=== PATIENT | male | born 1995 | race American Indian/Alaskan Native ===

== ENCOUNTER 2019-03-21 15:11 | Emergency (ER) | payer SELFPAY ==
[2019-03-21 16:02] VITALS: BP 137/78
== END 2019-03-21 18:30 | disposition left against medical advice (07) ==
LOC: ED 15:11
DX: M54.9 Dorsalgia, unspecified (principal); Z53.21 Procedure and treatment not carried out due to patient leaving prior to being seen by health care provider

== ENCOUNTER 2020-08-03 16:11 | Emergency (ER) | payer SELFPAY ==
[2020-08-03 16:46] VITALS: BP 122/71
--- NOTE | 2020-08-03 18:39 | XRay Report ---
Left hand 3 views INDICATION: Left hand pain following injury IMPRESSION: There is an obliquely oriented moderately displaced fracture involving the distal metaphy sis of the fifth metacarpal. No additional fracture is identified. Signer Name: Himanshu Lea MD Signed: 08/03/2020 6:35 PM Workstation Name: [id number]
--- NOTE | 2020-08-03 18:50 | Emergency Department Report ---
ED Upper Extremity Inj HPI - General Chief Complaint: Extremity Injury, Upper Stated Complaint: PINKY INJURY Time Seen by Provider: 08/03/20 18:09 Source: patient Mode of arrival: Ambulatory Limitations: No Limitations - History of Present Illness Initial Comments: Patient is a 25-year-old male presents emergency room complaints of a left hand injury that occurred 5 days ago. He states that he was moving a 80 pound speaker. He states that it started to drop to the ground and his hand got smashed in between the speaker and the ground. He states since then he has had left hand pain and left pinky pain. He states he has worsening pain with moving his pinky. He denies ever injuring the past. He is right-hand dominant. He denies any numbness. No past medical history. No allergies medications. - Related Data Previous Rx's Medication Instructions Recorded Last Taken Type Naproxen [EC-Naproxen] 500 mg PO BID PRN #14 tablet. 08/03/20 Unknown Rx traMADoL [Ultram 50 MG tab] 50 mg PO Q6HR PRN #10 tablet 08/03/20 Unknown Rx Allergies Allergy/AdvReac Type Severity Reaction Status Date / Time No Known Allergies Allergy Unverified 03/21/19 16:03 ED Review of Systems ROS: Stated complaint: PINKY INJURY Other details as noted in HPI Comment: All other systems reviewed and negative ED Past Medical Hx - Past Medical History Previous Medical History?: No - Surgical History Past Surgical History?: No - Social History Smoking Status: Never Smoker Substance Use Type: None - Medications Home Medications: Home Medications Medication Instructions Recorded Confirmed Last Taken Type Naproxen [EC-Naproxen] 500 mg PO BID PRN #14 tablet. 08/03/20 Unknown Rx traMADoL [Ultram 50 MG tab] 50 mg PO Q6HR PRN #10 tablet 08/03/20 Unknown Rx ED Physical Exam - General Limitations: No Limitations General appearance: alert, in no apparent distress - Head Head exam: Present: atraumatic, normocephalic - Eye Eye exam: Present: normal appearance - ENT ENT exam: Present: mucous membranes moist - Respiratory Respiratory exam: Absent: respiratory distress, accessory muscle use - Extremities Exam Extremities exam: Present: other (ttp, edema, and ecchymosis present to the left dorsal medial hand overlying the 5th metacarpal and appears to have deformity, decreased ROM Of the left pinky, no wrist ttp, no snuffbox ttp, neurovascularly intact) - Neurological Exam Neurological exam: Present: alert, oriented X3 - Psychiatric Psychiatric exam: Present: normal affect, normal mood - Skin Skin exam: Present: warm, dry, intact ED Course Vital Signs 08/03/20 16:45 Temperature 98.2 F Pulse Rate 73 Respiratory 18 Rate Blood Pressure 122/71 [Right] O2 Sat by Pulse 98 Oximetry ED Medical Decision Making - Radiology Data Radiology results: report reviewed Ordering Physician: ANIKA AZEVEDO Date of Service: 08/03/20 Procedure(s): XR hand 3+V LT Accession Number(s): [id number] cc: ANIKA AZEVEDO Fluoro Time In Minutes: Left hand 3 views INDICATION: Left hand pain following injury IMPRESSION: There is an obliquely oriented moderately displaced fracture involving the distal metaphysis of the fifth metacarpal. No additional fracture is identified. Signer Name: Himanshu Lea MD Signed: 08/03/2020 6:35 PM Workstation Name: [email or web address] Transcribed By: PHILIP Dictated By: Himanshu Lea MD Electronically Authenticated By: Himanshu Lea MD Signed Date/Time: 08/03/201834 DD/ 34 TD/TT: Print - Medical Decision Making Patient is a 25-year-old male presents emergency room complaints of a left hand injury that occurred 5 days ago. He states that he was moving a 80 pound speaker. He states that it started to drop to the ground and his hand got smashed in between the speaker and the ground. He states since then he has had left hand pain and left pinky pain. He states he has worsening pain with moving his pinky. He denies ever injuring the past. He is right-hand dominant. He denies any numbness. No past medical history. No allergies medications. vss. on exam: ttp, edema, and ecchymosis present to the left dorsal medial hand overlying the 5th metacarpal and appears to have deformity, decreased ROM Of the left pinky, no wrist ttp, no snuffbox ttp, neurovascularly intact. XR left hand: IMPRESSION: There is an obliquely oriented moderately displaced fracture involving the distal metaphysis of the fifth metacarpal. No additional fracture is identified. Discussed case with Dr. Owens, ER attending who advised to pull slightly proximally and then have nurse splint. I pulled left pinky proximally to align left fifth metacarpal, ulnar gutter splint was placed by level vial inspector, patient remained neurovascularly intact after splint. I discussed results with patient and the importance of orthopedic follow-up. Patient given prescription for naproxen and tramadol. Advised patient Please take medication as prescribed. Do not drive or operate machinery while taking severe pain medication. Please follow-up with orthopedic doctor. It is very important that you follow-up. Return to emergency room immediately for any new or worsening symptoms. Critical care attestation.: If time is entered above; I have spent that time in minutes in the direct care of this critically ill patient, excluding procedure time. ED Disposition Clinical Impression: Closed fracture of 5th metacarpal Qualifiers: Encounter type: initial encounter Metacarpal location: shaft Fracture alignment: displaced Laterality: left Qualified Code(s): S62.327A - Displaced fracture of shaft of fifth metacarpal bone, left hand, initial encounter for closed fracture Disposition: DC-01 TO HOME OR SELFCARE Is pt being admited?: No Does the pt Need Aspirin: No Condition: Stable Instructions: Metacarpal Fracture Additional Instructions: Please take medication as prescribed. Do not drive or operate machinery while taking severe pain medication. Please follow-up with orthopedic doctor. It is very important that you follow-up. Return to emergency room immediately for any new or worsening symptoms. Prescriptions: Naproxen [EC-Naproxen] 500 mg PO BID PRN #14 tablet. PRN Reason: pain traMADoL [Ultram 50 MG tab] 50 mg PO Q6HR PRN #10 tablet PRN Reason: Pain , Severe (7-10) Referrals: SOREN LOPEZ MD [Staff Physician] - 2-3 Days [facility] [Provider Group] - 2-3 Days Time of Disposition: 18:53 Print Language: [place]
== END 2020-08-03 19:30 | disposition home or self-care (01) ==
LOC: ED 16:11
DX: S62.327A Displaced fracture of shaft of fifth metacarpal bone, left hand, initial encounter for closed fracture (principal); Z79.899 Other long term (current) drug therapy; X58.XXXA Exposure to other specified factors, initial encounter; Y93.89 Activity, other specified; Y92.89 Other specified places as the place of occurrence of the external cause; Y99.8 Other external cause status
CPT/HCPCS: 99283